=== PATIENT | female | born 2000 | race Two or more races ===

== ENCOUNTER 2021-10-06 04:14 | Emergency (ER) | payer MEDICAID, OTHER ==
[~2021-10-06] VITALS: Ht 162.6 cm; Wt 104.3 kg
[2021-10-06 06:40] VITALS: BP 145/102
[2021-10-06] MEDS ORDERED: cefTRIAXone 1GM/50ML D5W 50 ML IV ONE (06:45)
[2021-10-06] MEDS ORDERED: KETOROLAC TROMETH 30 MG/ML 1ML VIAL IV ONE (06:45)
[2021-10-06] MEDS ORDERED: PIPERACILLIN-TAZOB 3.375GM 100 ML IV ONE (07:30)
[2021-10-06 07:45] LABS: Basophils # (auto) 0 10 ^3/uL (0-0.2); Basophils % (auto) 0.6 % (0.0-2.0); Eosinophils # (auto) 0.1 10 ^3/uL (0-0.8); Eosinophils % (auto) 1.1 % (0.0-7.0); Hematocrit 40.6 % (36.0-46.0); Hemoglobin 13.6 g/dL (12.2-16.2); Lymphocytes # (auto) 2.1 10 ^3/uL (0.4-5.4); Lymphocytes % (auto) 41.7 % (10.0-50.0); Mean Corpuscular Hemoglobin 28.7 pg (28.0-32.0); Mean Corpuscular Hgb Conc. 33.6 g/dL (32.0-36.0); Mean Corpuscular Volume 85.5 fL (80.0-100.0); Monocytes # (auto) 0.3 10 ^3/uL (0-1.3); Monocytes % (auto) 6.4 % (0.0-12.0); Neutrophils # (auto) 2.5 10 ^3/uL (1.6-8.6); Neutrophils % (auto) 50.2 % (37.0-80.0); Nucleated Red Blood Cells % 0.1 %; Red Blood Cells 4.75 10^6/uL (4.0-5.20); Red Cell Distribution Width 13.5 % (11.8-14.3)
[2021-10-06 07:59] LABS: BUN/Creatinine Ratio 15.3; Calcium 9.3 mg/dL (8.5-10.1); Potassium 3.7 mmol/L (3.5-5.1)
== END 2021-10-06 08:27 | disposition home or self-care (01) ==
LOC: ER 04:14
DX: K11.20 Sialoadenitis, unspecified (principal)
CPT/HCPCS: 36415; 70486; 80048; 85025; 96365; 96368; 96375; 99284; J0696; J1885; J2543

== ENCOUNTER 2021-10-07 06:07 | Emergency (ER) | payer MEDICAID ==
[~2021-10-07] VITALS: Ht 162.6 cm; Wt 104.3 kg
[2021-10-07] MEDS ORDERED: KETOROLAC TROMETH 30 MG/ML 1ML VIAL IV ONE (07:00)
[2021-10-07] MEDS ORDERED: PIPERACILLIN-TAZOB 3.375GM 100 ML IV ONE (07:00)
[2021-10-07] MEDS ORDERED: cefTRIAXone 1GM/50ML D5W 50 ML IV ONE (07:00)
[2021-10-07 10:54] VITALS: BP 112/64
[2021-10-08] MEDS ORDERED: cefTRIAXone SOD 1,000 MG VL IV ONE (10:30)
[2021-10-08] MEDS ORDERED: PIPERACILLIN-TAZOB 3.375GM 100 ML IV ONE (10:30)
== END 2021-10-07 11:08 | disposition home or self-care (01) ==
LOC: ER 06:07
DX: K11.21 Acute sialoadenitis (principal); Z90.49 Acquired absence of other specified parts of digestive tract
CPT/HCPCS: 96365; 96366; 96367; 96375; 99284; J0696; J1885; J2543

== ENCOUNTER 2021-10-08 06:15 | Emergency (ER) | payer MEDICAID ==
[~2021-10-08] VITALS: Ht 162.6 cm; Wt 104.3 kg
[2021-10-08] MEDS ORDERED: metroNIDAZOLE 500MG/100ML 100 ML IV ONE (10:45)
[2021-10-08] MEDS ORDERED: cefTRIAXone SOD 1,000 MG VL IV ONE (10:45)
[2021-10-08 13:17] VITALS: BP 115/85
== END 2021-10-08 13:21 | disposition home or self-care (01) ==
LOC: ER 06:15
DX: K11.20 Sialoadenitis, unspecified (principal); Z90.89 Acquired absence of other organs
CPT/HCPCS: 96365; 96375; 99284; J0696; J3490